=== PATIENT | male | born 1940 | race American Indian/Alaskan Native ===

== ENCOUNTER 2016-11-04 11:47 | Emergency (ER) | payer MEDICARE ==
[2016-11-04 12:57] LABS: Basophils % (Auto) 0.3 % (0.0-1.8); Eosinophils % (Auto) 0.2 % (0.0-4.3); Hematocrit 37.1 % (35.5-45.6); Hemoglobin 12.3 gm/dl (11.8-15.2); Mean Corpuscular HGB Conc 33 % (32-34); Mean Corpuscular Hemoglobin 34 pg (28-32); Mean Corpuscular Volume 103 fl (84-94); Platelet Count 166 K/mm3 (140-440); Red Blood Count 3.59 M/mm3 (3.65-5.03); Red Cell Distribution Width 16.5 % (13.2-15.2); White Blood Count 9.2 K/mm3 (4.5-11.0)
[2016-11-04 13:13] LABS: Blood Urea Nitrogen 17 mg/dL (9-20); Carbon Dioxide 24 mmol/L (22-30); Chloride 97.4 mmol/L (98-107); Glucose 94 mg/dL (75-100); Sodium 134 mmol/L (137-145)
--- NOTE | 2016-11-04 13:30 | XRay Report ---
Right elbow: Swelling and pain. There is soft tissue swelling of the medial and posterior elbow region. No underlying acute bone or joint pathology noted. There is an ulnar attachment spur. There is no joint effusion. The bones are well-mineralized. Impressions: Nonspecific swelling.
[2016-11-04 14:15] LABS: Anion Gap 18 mmol/L; Potassium 5.5 mmol/L (3.6-5.0)
[2016-11-04] MEDS ORDERED: NORCO 5/325 PO ONE (14:38)
--- NOTE | 2016-11-04 15:44 | Emergency Department Report ---
Upper Extremity - HPI Chief Complaint: Extremity Injury, Upper Stated Complaint: SWOLLEN R ARM/HAND PAIN Time Seen by Provider: 11/04/16 14:08 Upper Extremity: Right Elbow Occurred When: 3 Days Mechanism: Other Symptoms: Yes Pain with Movement, Yes Limited Range of Movement, Yes Swelling, No Deformity, No Numbness, No Weakness, No Bruising/Ecchymosis, No Laceration or Abrasion Other History: 76-year-old male past medical history hypertension and arthritis , bursitis presents with complaint of 3 days of right elbow pain. Denies any direct trauma no fever no chills no nausea no vomiting. Patient is awake alert and oriented 3 not in acute distress complaining of pain and slight swelling his right elbow. States that his symptoms are consistent with previous episodes of olecranon bursitis. ED Review of Systems ROS: Stated complaint: SWOLLEN R ARM/HAND PAIN Other details as noted in HPI Constitutional: denies: chills, fever Eyes: denies: eye pain, eye discharge, vision change ENT: denies: ear pain, throat pain Respiratory: denies: cough, shortness of breath, wheezing Cardiovascular: denies: chest pain, palpitations Endocrine: no symptoms reported Gastrointestinal: denies: abdominal pain, nausea, diarrhea Genitourinary: denies: urgency, dysuria Musculoskeletal: as per HPI. denies: back pain, joint swelling, arthralgia Skin: denies: rash, lesions Neurological: denies: headache, weakness, paresthesias Psychiatric: denies: anxiety, depression Hematological/Lymphatic: denies: easy bleeding, easy bruising ED Past Medical Hx - Past Medical History Hx Hypertension: Yes Hx Arthritis: Yes - Surgical History Past Surgical History?: No - Social History Smoking Status: Current Some Day Smoker Substance Use Type: Alcohol - Medications Home Medications: Home Medications Medication Instructions Recorded Confirmed Last Taken Type Acetaminophen [Acetaminophen TAB] 500 mg PO Q6HR PRN #30 tablet 11/04/16 Unknown Rx Acetaminophen/Codeine [Tylenol 1 tab PO Q6H PRN #12 tab 11/04/16 Unknown Rx /Codeine # 3 tab] Upper Extremity Exam - Exam General: Vital signs noted. No distress. Alert and acting appropriately. Head and Torso: No HEENT Abnormality, No Neck Tenderness, No Chest/Lungs Abnormality, No Abdominal Tenderness, No Back Tenderness Shoulder Exam: Yes Normal Range of Motion in Shoulder, No Shoulder Tenderness, No Clavicle Tenderness, No Shoulder Deformity, No AC Joint Tenderness Arm Exam: No Arm/Humerus Tenderness, No Arm Deformity Elbow: Yes Elbow Tenderness (no pain on palpation but patient states that pronation supination and elbow extension are mildly painful), Yes Normal Range of Motion in Elbow (patient is able to flex and extend his right elbow with some pain), No Elbow Deformity Forearm: Yes Pain with Pronation, No Forearm Tenderness, No Forearm Deformity, No Pain with Supination Wrist: Yes Normal ROM in Wrist, No Wrist Tenderness, No Wrist Deformity, No Snuffbox Tenderness, No Pain with Axial Thumb Compression Hand: Yes Normal ROM in Digit(s), No Hand Tenderness, No Hand Deformity, No Digit Tenderness, No Digit(s) Deformity, No Tendon Dysfunction CMS Exam: No Broken Skin, No Normal Distal Pulses, No Normal Capillary Refill, No Normal Distal Sensation Front/Back of Body, Lg (Color): 1 - mild Pain on palpation to right elbow region ED Course Vital Signs 11/04/16 11/04/16 12:31 14:55 Temperature 98.5 F Pulse Rate 75 Respiratory 16 18 Rate Blood Pressure 147/95 O2 Sat by Pulse 100 Oximetry ED Medical Decision Making - Lab Data Result diagrams: 11/04/16 12:44 11/04/16 12:44 - Medical Decision Making A/P: Olecranon bursitis right elbow 1-patient able to actively flex and extend his right elbow. 2-labs unremarkable 3-ray shows no fracture 4- no cellulitis overlying right elbow not palpably hot to touch patient has no fever and has no mechanism or foreign body within right elbow no history of elbow replacement. 5- I discussed case with orthopedic consult Dr. Shafer as per Dr. Shafer highly unlikely to be septic arthritis or bursitis, we'll refer patient to Dr. Shafer/ orthopedics. Patient to follow-up in 2 days in office with Dr. Shafer. Motrin and Tylenol 3 when necessary Critical care attestation.: If time is entered above; I have spent that time in minutes in the direct care of this critically ill patient, excluding procedure time. ED Disposition Clinical Impression: Olecranon bursitis, right elbow Disposition: DISCHARGED TO HOME OR SELFCARE Is pt being admited?: No Does the pt Need Aspirin: No Condition: Stable Instructions: Elbow Bursitis (ED), RICE Therapy (ED) Prescriptions: Acetaminophen [Acetaminophen TAB] 500 mg PO Q6HR PRN #30 tablet PRN Reason: Pain Acetaminophen/Codeine [Tylenol /Codeine # 3 tab] 1 tab PO Q6H PRN #12 tab PRN Reason: Pain Referrals: JEEVAN QURESHI MD [Staff Physician] - 3-5 Days SHIREEN SHAFER MD [Staff Physician] - 3-5 Days Time of Disposition: 15:52
[2016-11-04 16:05] VITALS: BP 141/81
== END 2016-11-04 16:04 | disposition home or self-care (01) ==
LOC: ED 11:47
DX: M70.21 Olecranon bursitis, right elbow (principal); I10 Essential (primary) hypertension; M19.90 Unspecified osteoarthritis, unspecified site; F17.200 Nicotine dependence, unspecified, uncomplicated; Z88.6 Allergy status to analgesic agent
CPT/HCPCS: 36415; 80048; 85025

== ENCOUNTER 2016-11-05 11:06 | Emergency (ER) | payer MEDICARE ==
[2016-11-05 12:02] LABS: Anion Gap 21 mmol/L; BUN/Creatinine Ratio 16.92; Blood Urea Nitrogen 22 mg/dL (9-20); Calcium 9.1 mg/dL (8.4-10.2); Carbon Dioxide 22 mmol/L (22-30); Chloride 99.1 mmol/L (98-107); Sodium 138 mmol/L (137-145)
[2016-11-05 12:25] LABS: Potassium 3.9 mmol/L (3.6-5.0)
--- NOTE | 2016-11-05 12:41 | Emergency Department Report ---
ED Recheck HPI - General Chief Complaint: Recheck/Abnormal Lab/Rx Stated Complaint: HYPERKALEMIA Time Seen by Provider: 11/05/16 11:24 Source: patient Mode of arrival: Ambulatory Limitations: No Limitations - History of Present Illness Initial Comments: 76-year-old male past medical history hypertension, bursitis. I recalled the patient to the ED for repeat check on potassium level. Patient seen yesterday for bursitis right side BMP drawn potassium returned at 5.5. Patient returns today for recheck of his potassium. Patient denies any chest pain palpitations shortness of breath nausea vomiting no weakness reported. MD Complaint: abnormal lab Onset/Timin -: days(s) Returns Today for: other (hyperkalemia) Associated Symptoms: none - Related Data Previous Rx's Medication Instructions Recorded Last Taken Type Acetaminophen [Acetaminophen TAB] 500 mg PO Q6HR PRN #30 tablet 11/04/16 Unknown Rx Acetaminophen/Codeine [Tylenol 1 tab PO Q6H PRN #12 tab 11/04/16 Unknown Rx /Codeine # 3 tab] Allergies Allergy/AdvReac Type Severity Reaction Status Date / Time ibuprofen [From Motrin] Allergy Vomiting Verified 11/04/16 12:26 ED Review of Systems ROS: Stated complaint: HYPERKALEMIA Other details as noted in HPI Constitutional: denies: chills, fever Eyes: denies: eye pain, eye discharge, vision change ENT: denies: ear pain, throat pain Respiratory: denies: cough, shortness of breath, wheezing Cardiovascular: denies: chest pain, palpitations Endocrine: no symptoms reported Gastrointestinal: denies: abdominal pain, nausea, diarrhea Genitourinary: denies: urgency, dysuria Musculoskeletal: as per HPI, joint swelling (she has right side elbow bursitis) . denies: back pain, arthralgia Skin: denies: rash, lesions Neurological: denies: headache, weakness, paresthesias Psychiatric: denies: anxiety, depression Hematological/Lymphatic: denies: easy bleeding, easy bruising ED Past Medical Hx - Past Medical History Hx Hypertension: Yes Hx Arthritis: Yes - Social History Smoking Status: Current Every Day Smoker Substance Use Type: None - Medications Home Medications: Home Medications Medication Instructions Recorded Confirmed Last Taken Type Acetaminophen [Acetaminophen TAB] 500 mg PO Q6HR PRN #30 tablet 11/04/16 Unknown Rx Acetaminophen/Codeine [Tylenol 1 tab PO Q6H PRN #12 tab 11/04/16 Unknown Rx /Codeine # 3 tab] ED Physical Exam - General Limitations: No Limitations General appearance: alert, in no apparent distress - Head Head exam: Present: atraumatic, normocephalic - Eye Eye exam: Present: normal appearance, PERRL, EOMI - ENT ENT exam: Present: mucous membranes moist - Neck Neck exam: Present: normal inspection - Respiratory Respiratory exam: Present: normal lung sounds bilaterally. Absent: respiratory distress - Cardiovascular Cardiovascular Exam: Present: regular rate, normal rhythm. Absent: systolic murmur, diastolic murmur, rubs, gallop - GI/Abdominal GI/Abdominal exam: Present: soft, normal bowel sounds - Rectal Rectal exam: Present: deferred - Extremities Exam Extremities exam: Present: normal inspection - Expanded Upper Extremity Exam Right Shoulder Exam: Present: normal inspection, full ROM Upper Arm exam: Present: normal inspection, full ROM Elbow exam: Present: tenderness (right arm in sling come patient has right elbow bursitis) - Back Exam Back exam: Present: normal inspection - Neurological Exam Neurological exam: Present: alert, oriented X3 - Psychiatric Psychiatric exam: Present: normal affect, normal mood - Skin Skin exam: Present: warm, dry, intact, normal color. Absent: rash ED Course Vital Signs 11/05/16 11:24 Temperature 98.4 F Pulse Rate 76 Respiratory 16 Rate Blood Pressure 130/79 O2 Sat by Pulse 99 Oximetry ED Recheck MDM - Medical Decision Making A/P: Abnormal labs 1-potassium rechecked, potassium 3.9. Normal 2-EKG within normal limits 3-patient follow up with primary care doctor Critical care attestation.: If time is entered above; I have spent that time in minutes in the direct care of this critically ill patient, excluding procedure time. ED Disposition Clinical Impression: Abnormal laboratory test Disposition: DISCHARGED TO HOME OR SELFCARE Is pt being admited?: No Does the pt Need Aspirin: No Condition: Stable Referrals: JEEVAN QURESHI MD [Staff Physician] - 3-5 Days ANUPAM BHATT MD [Staff Physician] - 3-5 Days [facility] [Provider Group] - 3-5 Days [facility] [Outside] - 3-5 Days Time of Disposition: 12:40
[2016-11-05] MEDS ORDERED: TYLENOL PO ONE (12:48)
[2016-11-05 12:54] LABS: Glucose 76 mg/dL (75-100)
[2016-11-05 12:55] VITALS: BP 128/82
== END 2016-11-05 12:52 | disposition home or self-care (01) ==
LOC: ED 11:06
DX: R79.9 Abnormal finding of blood chemistry, unspecified (principal); I10 Essential (primary) hypertension; F17.200 Nicotine dependence, unspecified, uncomplicated
CPT/HCPCS: 36415; 80048; 83735; 93005; 93010; 99283

== ENCOUNTER 2017-05-29 16:55 | Emergency (ER) | payer MEDICARE ==
[2017-05-29 17:29] VITALS: BP 160/82
--- NOTE | 2017-05-29 18:00 | Emergency Department Report ---
HPI - General Chief Complaint: Fall Time Seen by Provider: 05/29/17 17:34 - HPI HPI: This is a 77 year-old male who was already in the emergency department with his , who is being seen for some ailment, and he accidentally fell and hit his head and one of the examination rooms. The patient had been drinking alcohol earlier today and potentially had some in a water bottle here at the hospital. He says that he just tripped over himself. There was no loss of consciousness. He denies any physical complaints. His only significant past medical history is hypertension. He denies any blurred vision, slurred speech or any neurological deficits. ED Past Medical Hx - Past Medical History Previous Medical History?: Yes Hx Hypertension: Yes Hx Arthritis: Yes - Surgical History Past Surgical History?: No - Social History Smoking Status: Current Every Day Smoker Substance Use Type: Alcohol - Medications Home Medications: Home Medications Medication Instructions Recorded Confirmed Last Taken Type Acetaminophen [Acetaminophen TAB] 500 mg PO Q6HR PRN #30 tablet 11/04/16 Unknown Rx Acetaminophen/Codeine [Tylenol 1 tab PO Q6H PRN #12 tab 11/04/16 Unknown Rx /Codeine # 3 tab] ED Review of Systems ROS: Stated complaint: FALL Other details as noted in HPI Comment: All other systems reviewed and negative Constitutional: denies: chills, fever Eyes: denies: eye pain, eye discharge, vision change ENT: denies: ear pain, throat pain Respiratory: denies: cough, shortness of breath, wheezing Cardiovascular: denies: chest pain, palpitations Gastrointestinal: denies: abdominal pain, nausea, diarrhea Genitourinary: denies: urgency, dysuria Musculoskeletal: denies: back pain, joint swelling, arthralgia Skin: denies: rash, lesions Neurological: denies: headache, weakness, paresthesias Physical Exam - Physical Exam Vital Signs: Vital Signs 05/29/17 17:21 Temperature 98.7 F Pulse Rate 104 H Respiratory 18 Rate Blood Pressure 160/82 O2 Sat by Pulse 98 Oximetry Physical Exam: GENERAL: The patient is well-developed well-nourished. HENT: Normocephalic. Atraumatic. Patient has moist mucous membranes. EYES: Extraocular motions are intact. Pupils equal reactive to light bilaterally. No nystagmus. NECK: Supple. Trachea is midline. No tenderness palpation, step-off or deformity. CHEST/LUNGS: Clear to auscultation. There is no respiratory distress noted. HEART/CARDIOVASCULAR: Regular. There is no tachycardia. There is no gallop rub or murmur. ABDOMEN: Abdomen is soft, nontender. Patient has normal bowel sounds. There is no abdominal distention. SKIN: Skin is warm and dry. NEURO: The patient is awake, alert, and oriented. The patient is cooperative. The patient has no focal neurologic deficits. The patient has normal speech and gait. Cranial nerves II through XII grossly intact. No pronator drift or dysmetria. MUSCULOSKELETAL: There is no tenderness or deformity. There is no limitation range of motion. There is no evidence of acute injury. ED Course Vital Signs 05/29/17 17:21 Temperature 98.7 F Pulse Rate 104 H Respiratory 18 Rate Blood Pressure 160/82 O2 Sat by Pulse 98 Oximetry ED Medical Decision Making - Radiology Data Radiology results: report reviewed EXAM: CT CERVICAL SPINE WO CON HISTORY: GLF, ground level fall hit head TECHNIQUE: CT examination of the cervical spine without IV contrast PRIORS: None. FINDINGS: Prevertebral soft tissues are without swelling. No evidence of cervical fracture or vertebral compression. Multilevel degenerative changes are present at the vertebral endplates, facet joints, and uncinate joints. Anterolisthesis: Grade 1 C4-5 without spondylolysis Retrolisthesis: None. Disc narrowing: C4-5 moderate, C5-6 severe, C6-7 severe Vertebral endplate, uncinate, and facet degenerative hypertrophic change is associated with right C3-4, right C4-5, right C5-6 and right C6-7, left C3-4, left C4-5, left C5-6, left C6-7 osseous neural foraminal stenosis. Soft tissue windows suggest diffuse posterior disc bulge at C3-4, C5-6, and C6-7 possibly with slight central canal stenosis. Cervical spine curvature with mid left apex. IMPRESSION: No acute skeletal pathology in the cervical spine Grade 1 degenerative anterolisthesis at C4-5 with moderate disc narrowing Multilevel degenerative change, disc narrowing, neural foraminal stenosis, and suggestion of diffuse disc bulge possibly with central canal stenosis Cervical spine curvature with mid left apex may be from degenerative change. Consider also spasm Transcribed By: BAL Dictated By: NANCY COLLIER MD Electronically Authenticated By: NANCY COLLIER MD Signed Date/Time: 05/29/17 1407 EXAM: CT HEAD/BRAIN WO CON HISTORY: GLF, ground level fall hit head TECHNIQUE: CT examination of the head without IV contrast PRIORS: None. FINDINGS: No acute air-fluid level visualized in the included air-filled sinuses. Bone windows demonstrate no acute fracture. There is ventricular and sulcal prominence compatible with global cerebrocortical atrophy. The brain contains no mass, mass effect, hemorrhage, or acute infarct. There is no extra-axial intracranial bleed, brain bleed, or midline shift. IMPRESSION: No acute CVA, intracranial bleed, or brain mass Transcribed By: MARY Dictated By: NANCY COLLIER MD Electronically Authenticated By: NANCY COLLIER MD Signed Date/Time: 05/29/17 1401 - Medical Decision Making This patient had a fall, witnessed by family, while waiting for his to be discharged from the emergency department. There was no loss of consciousness. He has not had any focal, motor or sensory deficits and his cranial nerves are intact. There may have been some alcohol involved but otherwise the patient is awake and alert and his family is here watching him and able to take responsibility for him. He has some hypertension but overall his vitals have been stable. CT of the head did not show any bleed, shift, ischemic changes or any acute process. CT of the cervical spine shows some osteoarthritis and spondylosis but otherwise no acute process. He has been seen ambulatory in the emergency department and appears stable. Encouraged follow-up with his primary care physician and return with any worsening of symptoms or any acute distress. Critical Care Time: No Critical care attestation.: If time is entered above; I have spent that time in minutes in the direct care of this critically ill patient, excluding procedure time. ED Disposition Clinical Impression: Hypertension Qualifiers: Hypertension type: essential hypertension Qualified Code(s): I10 - Essential ( primary) hypertension Fall Qualifiers: Encounter type: initial encounter Qualified Code(s): W19.XXXA - Unspecified fall, initial encounter Minor head injury without loss of consciousness Qualifiers: Encounter type: initial encounter Qualified Code(s): S09.90XA - Unspecified injury of head, initial encounter Disposition: DC-01 TO HOME OR SELFCARE Is pt being admited?: No Condition: Stable Instructions: Fall Prevention for Older Adults (ED), Minor Head Injury (ED), Hypertension (ED) Additional Instructions: Please follow-up with your primary care physician in the next few days. Try and stay away from foods that are high in salt and caffeinated products to help with your blood pressure. Keep a blood pressure log. Return to the emergency Department with any worsening of your symptoms or any acute distress. Referrals: PRIMARY CARE, [Primary Care Provider] - 3-5 Days Time of Disposition: 18:23
--- NOTE | 2017-05-29 18:04 | Cat Scan Report ---
FINAL REPORT EXAM: CT HEAD/BRAIN WO CON HISTORY: GLF, ground level fall hit head TECHNIQUE: CT examination of the head without IV contrast PRIORS: None. FINDINGS: No acute air-fluid level visualized in the included air-filled sinuses. Bone windows demonstrate no acute fracture. There is ventricular and sulcal prominence compatible with global cerebrocortical atrophy. The brain contains no mass, mass effect, hemorrhage, or acute infarct. There is no extra-axial intracranial bleed, brain bleed, or midline shift. IMPRESSION: No acute CVA, intracranial bleed, or brain mass
--- NOTE | 2017-05-29 18:10 | Cat Scan Report ---
FINAL REPORT EXAM: CT CERVICAL SPINE WO CON HISTORY: GLF, ground level fall hit head TECHNIQUE: CT examination of the cervical spine without IV contrast PRIORS: None. FINDINGS: Prevertebral soft tissues are without swelling. No evidence of cervical fracture or vertebral compression. Multilevel degenerative changes are present at the vertebral endplates, facet joints, and uncinate joints. Anterolisthesis: Grade 1 C4-5 without spondylolysis Retrolisthesis: None. Disc narrowing: C4-5 moderate, C5-6 severe, C6-7 severe Vertebral endplate, uncinate, and facet degenerative hypertrophic change is associated with right C3-4, right C4-5, right C5-6 and right C6-7, left C3-4, left C4-5, left C5-6, left C6-7 osseous neural foraminal stenosis. Soft tissue windows suggest diffuse posterior disc bulge at C3-4, C5-6, and C6-7 possibly with slight central canal stenosis. Cervical spine curvature with mid left apex. IMPRESSION: No acute skeletal pathology in the cervical spine Grade 1 degenerative anterolisthesis at C4-5 with moderate disc narrowing Multilevel degenerative change, disc narrowing, neural foraminal stenosis, and suggestion of diffuse disc bulge possibly with central canal stenosis Cervical spine curvature with mid left apex may be from degenerative change. Consider also spasm
== END 2017-05-29 18:40 | disposition home or self-care (01) ==
LOC: ED 16:55
DX: S09.90XA Unspecified injury of head, initial encounter (principal); I10 Essential (primary) hypertension; F17.200 Nicotine dependence, unspecified, uncomplicated; W01.0XXA Fall on same level from slipping, tripping and stumbling without subsequent striking against object, initial encounter; Y93.89 Activity, other specified; Y92.89 Other specified places as the place of occurrence of the external cause; Y99.8 Other external cause status
CPT/HCPCS: 70450; 72125

== ENCOUNTER 2021-01-22 12:53 | Emergency (ER) | payer MEDICARE ==
--- NOTE | 2021-01-22 14:30 | XRay Report ---
CHEST 1 VIEW 01/22/2021 2:22 PM INDICATION / CLINICAL INFORMATION: weakness. COMPARISON: None available. FINDINGS: SUPPORT DEVICES: None. HEART / MEDIASTINUM: No significant abnormality. LUNGS / PLEURA: No significant pulmonary or pleural abnormality. No pneumothorax. ADDITIONAL FINDINGS: No significant additional findings. IMPRESSION: 1. No acute findings. Signer Name: Kian Maya MD Signed: 01/22/2021 2:25 PM Workstation Name: [id number]
--- NOTE | 2021-01-22 14:42 | Cat Scan Report ---
CT HEAD WITHOUT CONTRAST HISTORY: weakness. TECHNIQUE: Axial imaging performed from the skull apex through the skull base without the use of con trast. All CT scans at this location are performed using CT dose reduction for ALARA by means of aut omated exposure control. COMPARISON: 05/29/2017 FINDINGS: Parenchyma: No acute intracranial hemorrhage or parenchymal abnormality. Mild diffuse cortical volum e loss is stable. Mild hypoattenuation throughout the white matter is noted and consistent with loop tender maulik microvascular ischemic disease. No chronic infarct or extra-axial fluid collection. Ventricles: There is mild diffuse brain atrophy with commensurate ventricular enlargement which is l ikely age appropriate. Soft tissues: Soft tissues including the orbits appear normal. Bones: No acute osseous abnormality. Sinuses: Sinuses and mastoid air cells are clear. IMPRESSION: No acute abnormality. Age-related findings which appear stable since 05/29/2017. Signer Name: Saurabh Ruelas Jr, MD Signed: 01/22/2021 2:38 PM Workstation Name: [id number]
--- NOTE | 2021-01-22 15:02 | Emergency Department Report ---
ED General Adult HPI - General Chief complaint: Dizziness Stated complaint: WEAKNESS,DIZZINESS Time Seen by Provider: 01/22/21 13:08 Source: patient Mode of arrival: Stretcher Limitations: No Limitations - History of Present Illness Initial comments: The patient presents to the emergency department with a chief complaint of feeling lightheaded and dizzy for the last day. Patient also states he has had a decreased appetite over the last couple days and also feels weak. Patient denies any chest pain, shortness breath, or abdominal pain. Patient denies any slurred speech, focal neurological deficits, visual changes. -: Sudden Severity scale (0 -10): 0 Consistency: constant Improves with: none Worsens with: none Associated Symptoms: denies other symptoms Treatments Prior to Arrival: none - Related Data Previous Rx's Medication Instructions Recorded Last Taken Type Acetaminophen [Acetaminophen TAB] 500 mg PO Q6HR PRN #30 tablet 11/04/16 Unknown Rx Acetaminophen/Codeine [Tylenol 1 tab PO Q6H PRN #12 tab 11/04/16 Unknown Rx /Codeine # 3 tab] Allergies Allergy/AdvReac Type Severity Reaction Status Date / Time No Known Allergies Allergy Unverified 01/22/21 13:18 ED Review of Systems ROS: Stated complaint: WEAKNESS,DIZZINESS Other details as noted in HPI Comment: All other systems reviewed and negative Constitutional: weakness. denies: chills, fever Eyes: denies: eye pain, eye discharge, vision change ENT: denies: ear pain, throat pain Respiratory: denies: cough, shortness of breath, wheezing Cardiovascular: denies: chest pain, palpitations Endocrine: no symptoms reported Gastrointestinal: denies: abdominal pain, nausea, diarrhea Genitourinary: denies: urgency, dysuria Musculoskeletal: denies: back pain, joint swelling, arthralgia Skin: denies: rash, lesions Neurological: other (Dizziness). denies: headache, weakness, paresthesias Psychiatric: denies: anxiety, depression Hematological/Lymphatic: denies: easy bleeding, easy bruising ED Past Medical Hx - Past Medical History Previous Medical History?: Yes Hx Hypertension: Yes Hx Arthritis: Yes - Social History Smoking Status: Current Every Day Smoker Substance Use Type: None - Medications Home Medications: Home Medications Medication Instructions Recorded Confirmed Last Taken Type Acetaminophen [Acetaminophen TAB] 500 mg PO Q6HR PRN #30 tablet 11/04/16 Unknown Rx Acetaminophen/Codeine [Tylenol 1 tab PO Q6H PRN #12 tab 11/04/16 Unknown Rx /Codeine # 3 tab] ED Physical Exam - General Limitations: No Limitations General appearance: alert, in no apparent distress - Head Head exam: Present: atraumatic, normocephalic - Eye Eye exam: Present: normal appearance, PERRL, EOMI - ENT ENT exam: Present: mucous membranes dry - Neck Neck exam: Present: normal inspection - Respiratory Respiratory exam: Present: normal lung sounds bilaterally. Absent: respiratory distress - Cardiovascular Cardiovascular Exam: Present: regular rate, normal rhythm. Absent: systolic murmur, diastolic murmur, rubs, gallop - GI/Abdominal GI/Abdominal exam: Present: soft, normal bowel sounds. Absent: distended, tenderness - Rectal Rectal exam: Present: deferred - Extremities Exam Extremities exam: Present: normal inspection - Back Exam Back exam: Present: normal inspection - Neurological Exam Neurological exam: Present: alert, oriented X3, CN II-XII intact, normal gait, other (Normal finger-nose, [id number], rapid hand movement). Absent: motor sensory deficit - Psychiatric Psychiatric exam: Present: normal affect, normal mood - Skin Skin exam: Present: warm, dry, intact, normal color. Absent: rash ED Course Vital Signs 01/22/21 01/22/21 01/22/21 12:59 13:13 13:30 Temperature 98.1 F Pulse Rate 66 70 70 Pulse Rate [ Lying] Respiratory 18 17 15 Rate Blood Pressure 172/94 160/88 Blood Pressure [Lying] Blood Pressure 160/80 [Right] O2 Sat by Pulse 97 99 99 Oximetry 01/22/21 01/22/21 01/22/21 13:34 13:37 13:46 Temperature Pulse Rate 70 67 Pulse Rate [ Lying] Respiratory 18 18 Rate Blood Pressure 170/94 Blood Pressure [Lying] Blood Pressure [Right] O2 Sat by Pulse 96 100 Oximetry 01/22/21 01/22/21 17:37 17:42 Temperature Pulse Rate Pulse Rate [ 65 Lying] Respiratory Rate Blood Pressure 198/101 Blood Pressure 198/101 [Lying] Blood Pressure [Right] O2 Sat by Pulse 94 Oximetry ED Medical Decision Making - Lab Data Result diagrams: 01/22/21 14:34 01/22/21 14:34 Lab Results 01/22/21 01/22/21 01/22/21 Range/Units 14:34 14:34 14:34 WBC 4.8 (4.5-11.0) K/mm3 RBC 3.55 L (3.65-5.03) M/mm3 Hgb 12.7 (11.8-15.2) gm/dl Hct 38.2 (35.5-45.6) % MCV 108 H (84-94) fl MCH 36 H (28-32) pg MCHC 33 (32-34) % RDW 16.2 H (13.2-15.2) % Plt Count 154 (140-440) K/mm3 Lymph % (Auto) 30.0 (13.4-35.0) % [place] % (Auto) 8.5 H (0.0-7.3) % Eos % (Auto) 0.1 (0.0-4.3) % Baso % (Auto) 0.5 (0.0-1.8) % Lymph # (Auto) 1.4 (1.2-5.4) K/mm3 [place] # (Auto) 0.4 (0.0-0.8) K/mm3 Eos # (Auto) 0.0 (0.0-0.4) K/mm3 Baso # (Auto) 0.0 (0.0-0.1) K/mm3 Seg Neutrophils % 60.9 (40.0-70.0) % Seg Neutrophils # 2.9 (1.8-7.7) K/mm3 PT 13.0 (12.2-14.9) Sec. INR 0.92 (0.87-1.13) APTT 29.3 (24.2-36.6) Sec. Sodium 134 L (137-145) mmol/L Potassium 4.0 (3.6-5.0) mmol/L Chloride 93.5 L (98-107) mmol/L Carbon Dioxide 26 (22-30) mmol/L Anion Gap 19 mmol/L BUN 10 (9-20) mg/dL Creatinine 1.2 (0.8-1.3) mg/dL Estimated GFR > 60 ml/min BUN/Creatinine Ratio 8 % Glucose 101 H (75-100) mg/dL Calcium 9.4 (8.4-10.2) mg/dL Magnesium (1.7-2.3) mg/dL Total Bilirubin 0.60 (0.1-1.2) mg/dL AST 25 (5-40) units/L ALT 9 (7-56) units/L Alkaline Phosphatase 63 (35-129) units/L Troponin T < 0.010 (0.00-0.029) ng/mL NT-Pro-B Natriuret Pep 600.3 (0-900) pg/mL Total Protein 6.8 (6.3-8.2) g/dL Albumin 4.1 (3.9-5) g/dL Albumin/Globulin Ratio 1.5 % Lipase 22 (13-60) units/L Urine Color (Yellow) Urine Turbidity (Clear) Urine pH (5.0-7.0) Ur Specific [place] (1.003-1.030) Urine Protein (Negative) mg/dL Urine Glucose (UA) (Negative) mg/dL Urine Ketones (Negative) mg/dL Urine Blood (Negative) Urine Nitrite (Negative) Urine Bilirubin (Negative) Urine Urobilinogen (<2.0) mg/dL Ur Leukocyte Esterase (Negative) Urine WBC (Auto) (0.0-6.0) /HPF Urine RBC (Auto) (0.0-6.0) /HPF U Epithel Cells (Auto) (0-13.0) /HPF 01/22/21 01/22/21 01/22/21 Range/Units 14:34 14:34 Unknown WBC (4.5-11.0) K/mm3 RBC (3.65-5.03) M/mm3 Hgb (11.8-15.2) gm/dl Hct (35.5-45.6) % MCV (84-94) fl MCH (28-32) pg MCHC (32-34) % RDW (13.2-15.2) % Plt Count (140-440) K/mm3 Lymph % (Auto) (13.4-35.0) % [place] % (Auto) (0.0-7.3) % Eos % (Auto) (0.0-4.3) % Baso % (Auto) (0.0-1.8) % Lymph # (Auto) (1.2-5.4) K/mm3 [place] # (Auto) (0.0-0.8) K/mm3 Eos # (Auto) (0.0-0.4) K/mm3 Baso # (Auto) (0.0-0.1) K/mm3 Seg Neutrophils % (40.0-70.0) % Seg Neutrophils # (1.8-7.7) K/mm3 PT (12.2-14.9) Sec. INR (0.87-1.13) APTT (24.2-36.6) Sec. Sodium (137-145) mmol/L Potassium (3.6-5.0) mmol/L Chloride (98-107) mmol/L Carbon Dioxide (22-30) mmol/L Anion Gap mmol/L BUN (9-20) mg/dL Creatinine (0.8-1.3) mg/dL Estimated GFR ml/min BUN/Creatinine Ratio % Glucose (75-100) mg/dL Calcium (8.4-10.2) mg/dL Magnesium 1.50 L (1.7-2.3) mg/dL Total Bilirubin (0.1-1.2) mg/dL AST (5-40) units/L ALT (7-56) units/L Alkaline Phosphatase (35-129) units/L Troponin T < 0.010 (0.00-0.029) ng/mL NT-Pro-B Natriuret Pep (0-900) pg/mL Total Protein (6.3-8.2) g/dL Albumin (3.9-5) g/dL Albumin/Globulin Ratio % Lipase (13-60) units/L Urine Color Straw (Yellow) Urine Turbidity Clear (Clear) Urine pH 8.0 H (5.0-7.0) Ur Specific [place] 1.002 L (1.003-1.030) Urine Protein <15 mg/dl (Negative) mg/dL Urine Glucose (UA) Neg (Negative) mg/dL Urine Ketones Neg (Negative) mg/dL Urine Blood Neg (Negative) Urine Nitrite Neg (Negative) Urine Bilirubin Neg (Negative) Urine Urobilinogen < 2.0 (<2.0) mg/dL Ur Leukocyte Esterase Neg (Negative) Urine WBC (Auto) < 1.0 (0.0-6.0) /HPF Urine RBC (Auto) 1.0 (0.0-6.0) /HPF U Epithel Cells (Auto) < 1.0 (0-13.0) /HPF - EKG Data -: EKG Interpreted by Me EKG shows normal: sinus rhythm Rate: normal - Radiology Data Radiology results: report reviewed - Medical Decision Making Discussed admission with the patient but he politely declined Orthostatics done and negative Critical care attestation.: If time is entered above; I have spent that time in minutes in the direct care of this critically ill patient, excluding procedure time. ED Disposition Clinical Impression: Fatigue, Weakness Disposition: TO HOME OR SELFCARE Is pt being admited?: No Does the pt Need Aspirin: No Condition: Stable Instructions: Fatigue, Weakness Additional Instructions: return if worse Referrals: PRIMARY CAREMD [Primary Care Provider] - 3-5 Days BRITTANIE JOSE MD [Staff Physician] - 3-5 Days ANUPAM BHATT MD [Staff Physician] - 3-5 Days Time of Disposition: 18:01
[2021-01-22 15:12] LABS: Alanine Aminotransferase 9 units/L (7-56); Albumin 4.1 g/dL (3.9-5); BUN/Creatinine Ratio 8; Blood Urea Nitrogen 10 mg/dL (9-20); Calcium 9.4 mg/dL (8.4-10.2); Hemolysis Index 6
[2021-01-22 15:17] LABS: Basophils % (Auto) 0.5 % (0.0-1.8); Eosinophils % (Auto) 0.1 % (0.0-4.3); Hematocrit 38.2 % (35.5-45.6); Hemoglobin 12.7 gm/dl (11.8-15.2); Lymphocytes # (Auto) 1.4 K/mm3 (1.2-5.4); Mean Corpuscular HGB Conc 33 % (32-34); Mean Corpuscular Volume 108 fl (84-94); Monocytes # (Auto) 0.4 K/mm3 (0.0-0.8); Monocytes % (Auto) 8.5 % (0.0-7.3); Platelet Count 154 K/mm3 (140-440); Red Blood Count 3.55 M/mm3 (3.65-5.03); Red Cell Distribution Width 16.2 % (13.2-15.2)
[2021-01-22 15:33] LABS: INR 0.92 (0.87-1.13); Partial Thromboplastin Time 29.3 Sec. (24.2-36.6)
[2021-01-22 16:07] LABS: Bilirubin,Urine NEG (Negative); Blood,Urine NEG (Negative); Color,Urine Straw (Yellow); Protein,Urine <15 mg/dL mg/dL (Negative); Urobilinogen,Urine < 2.0 mg/dL (<2.0); WBC,Urine < 1.0 /HPF (0.0-6.0)
[2021-01-22 17:43] VITALS: BP 198/101
--- NOTE | 2021-01-24 17:35 | Electrocardiograph Report ---
[facility] Test Date: 2021-01-22 Test Time: 13:32:36 Pat Name: PETRA GORMAN Department: Room: Gender: M Adult Neurologist: NETTA : 1940 Requested By: DEBBY CASTILLO Order Number: [id number] Reading MD: Gilberto Mckeon Measurements Intervals [place] Rate: 69 P: 73 MA: 178 QRS: 26 QRSD: 116 T: 63 QT: 435 QTc: 435 Interpretive Statements Sinus rhythm Multiform ventricular premature complexes Nonspecific intraventricular conduction delay Consider anteroseptal infarct No previous ECG available for comparison Electronically Signed On 01-24-2021 17:34:40 EDT by Gilberto Mckeon
== END 2021-01-22 19:00 | disposition home or self-care (01) ==
LOC: ED 12:53
DX: R53.83 Other fatigue (principal); R53.1 Weakness; I10 Essential (primary) hypertension; M19.90 Unspecified osteoarthritis, unspecified site; F17.200 Nicotine dependence, unspecified, uncomplicated
CPT/HCPCS: 36415; 70450; 71045; 80053; 81001; 83690; 83735; 83880; 84484; 85025; 85610; 85730; 93005; 99285